=== PATIENT | male | born 1975 | race Caucasian/White ===

== ENCOUNTER → 2018-03-02 10:39 | Outpatient (CLI) | payer BC, SELFPAY ==
[2018-03-02 12:23] LABS: Add Manual Diff / Slide Review NO; Basophils Percent Auto 0.5 % (0-2); Eosinophils Percent Auto 3.1 % (2-4); Hematocrit 46.2 % (41-53); Hemoglobin 15.8 g/dL (13.5-17.5); Lymphocytes Percent Auto 31.3 % (25-40); Mean Corpuscular HGB Conc 34.2 % (30-36); Mean Corpuscular Hemoglobin 29.8 PG (26-34); Mean Corpuscular Volume 87.2 fL (80-100); Neutrophils Absolute Auto 3100 /uL (3000-5900); Neutrophils Percent Auto 58.1 % (50-75); Platelet Count 246 X10^3/uL (150-400); Red Cell Distribution Width 12.6 % (11.6-14.8); White Blood Cell Count 5.3 X10^3/uL (4.5-11.0)
[2018-03-02 13:13] LABS: Alanine Aminotransferase 50 IU/L (21-72); Albumin Globulin Ratio 1.8 (1.0-2.8); Alkaline Phosphatase 68 U/L (38-126); Aspartate Aminotransferase 25 IU/L (17-59); Bilirubin Total 0.6 mg/dL (0.2-1.3); Blood Urea Nitrogen 18 mg/dL (9-20); Calcium 9.7 mg/dL (8.4-10.2); Carbon Dioxide 28 mmol/L (22-32); Chloride 101 mmol/L (98-107); Cholesterol 205 mg/dL (140-199); Estimated Glomerular Filt Rate > 60.0 mL/min (>60); Globulin 2.8 g/dL (1.7-4.1); Glucose 82 mg/dL (70-100); HDL Cholesterol 57 mg/dL (40-60); HEMOLYSIS < 15 (0-50); LDL Cholesterol Calculated 134 mg/dL (<100); Potassium 4.7 mmol/L (3.4-5.1); Sodium 144 mmol/L (137-145); Total Protein 7.8 g/dL (6.3-8.2); Triglycerides 68 mg/dL (35-150)
[2018-03-02 13:17] LABS: Thyroid Stimulating Hormone 2.88 uIU/mL (0.47-4.68)
== END ==
PROVIDERS: PCP Family Medicine; Visit Provider Family Medicine
DX: Z00.00 Encounter for general adult medical examination without abnormal findings (principal)
CPT/HCPCS: 36415; 80053; 80061; 84443; 85025

== ENCOUNTER 2022-11-16 08:35 | Emergency (ER) | payer OTHER, SELFPAY ==
[2022-11-16] VITALS (27 sets, daily range): BP systolic 94–128; BP diastolic 54–83; PULSE 53–80; RESP 11–28; TEMP 37.1; O2SAT 96–100; BMI 26.4
--- NOTE | 2022-11-16 | DI.RAD.S_ITS ---
PROCEDURE: XR SHOULDER RT MIN 2V INDICATIONS: FELL OFF LADDER TECHNIQUE: 2 views of the shoulder were acquired. COMPARISON: None. FINDINGS: Bones: Mildly comminuted fracture of the humeral head and neck. No suspicious bony lesions. Visualized ribs appear intact. Soft tissues: No suspicious soft tissue calcifications. IMPRESSION: Mildly comminuted fracture of the humeral head and neck. Dictated by: Young Schwab M.D. on 11/16/2022 at 10:04 Approved by: Young Schwab M.D. on 11/16/2022 at 10:05
--- NOTE | 2022-11-16 08:39 | DI.CT.S_ITS ---
PROCEDURE: CT CHEST ABD PEL W CON INDICATIONS: Trauma TECHNIQUE: After the administration of intravenous contrast, 5 mm thick sections acquired from the lung apices to the symphysis. 2.5 mm thick coronal and sagittal reformats were acquired. Additional 7 mm thick coronal maximum intensity projection (MIP) reformats acquired through the lungs. Optional 10-minute delayed imaging may be performed from the kidneys to the bladder. For radiation dose reduction, the following was used: automated exposure control, adjustment of mA and/or kV according to patient size. COMPARISON: None. FINDINGS: Image quality: Excellent. CHEST: Lungs: No pulmonary contusions or lacerations. No acute airspace opacities. No pneumothorax or hemothorax. Central and peripheral airways appear patent and normal in caliber. Mediastinum: No mediastinal hematomas. Heart size is normal. No pericardial effusion. Thoracic aorta and pulmonary arteries demonstrate normal size and enhancement. No mediastinal or hilar adenopathy. Esophagus is normal in caliber. No hiatal hernia. Chest wall: No rib fractures. No subcutaneous emphysema. No axillary or supraclavicular adenopathy. Thyroid gland is unremarkable. ABDOMEN: Solid organs: Liver is normal in size and enhancement, without lacerations. Gallbladder is unremarkable without calcified gallstones. Biliary system is non-dilated. Pancreas enhances normally, without transection. Spleen is normal in size and enhancement, without lacerations. No adrenal hematomas. Both kidneys enhance normally, without hydronephrosis or lacerations. Peritoneum and bowel: No free fluid or air. Unenhanced bowel loops demonstrate normal wall thickness and caliber. Nodes and vessels: No retroperitoneal or mesenteric adenopathy. Aorta and inferior vena cava are normal in size and enhancement. Miscellaneous: No ventral hernias. PELVIS: Genitourinary: Bladder wall thickness is normal. Miscellaneous: No inguinal hernias or adenopathy. Bones: Pelvic ring and hip joints appear intact. No vertebral compression fractures. There is a mildly comminuted fracture of the right humeral head and neck. No dislocation. IMPRESSION: 1. Mildly comminuted fracture of the right humeral head and neck. 2. No rib fractures, vertebral body fractures, or other fractures other than the right humeral head and neck fracture. 3. No significant sequelae of acute trauma in the chest, abdomen, and pelvis. Dictated by: Young Schwab M.D. on 11/16/2022 at 9:41 Approved by: Young Schwab M.D. on 11/16/2022 at 9:46
--- NOTE | 2022-11-16 08:39 | DI.CT.S_ITS ---
PROCEDURE: CT CERVICAL SPINE WO CON INDICATIONS: Trauma TECHNIQUE: Noncontrast 3 mm thick sections acquired from the skull base to the T4 level. Sagittal and coronal reformats were then constructed. For radiation dose reduction, the following was used: automated exposure control, adjustment of mA and/or kV according to patient size. COMPARISON: None. FINDINGS: Image quality: Excellent. Bones: No fractures or dislocations. Visualized superior ribs are intact. Soft tissues: Prevertebral soft tissues are normal in thickness. No paravertebral hematomas. No apical pneumothoraces. IMPRESSION: No acute cervical fracture or dislocation. Dictated by: Young Schwab M.D. on 11/16/2022 at 9:39 Approved by: Young Schwab M.D. on 11/16/2022 at 9:41
--- NOTE | 2022-11-16 08:39 | DI.RAD.S_ITS ---
PROCEDURE: XR CHEST 1V INDICATIONS: trauma TECHNIQUE: One view of the chest was acquired. COMPARISON: None. FINDINGS: Surgical changes and devices: None. Lungs and pleura: Lungs are clear. No pleural effusions or pneumothorax. Mediastinum: Mediastinal contours appear normal. Heart size is normal. Bones and chest wall: No suspicious bony lesions. Overlying soft tissues appear unremarkable. IMPRESSION: No evidence acute pulmonary process. Dictated by: Young Schwab M.D. on 11/16/2022 at 9:07 Approved by: Young Schwab M.D. on 11/16/2022 at 9:10
--- NOTE | 2022-11-16 08:39 | DI.CT.S_ITS ---
PROCEDURE: CT HEAD/BRAIN WO CON INDICATIONS: Trauma TECHNIQUE: Noncontrast 4.5 mm thick angled axial sections acquired from the foramen magnum to the vertex, with coronal and sagittal reformats. For radiation dose reduction, the following was used: automated exposure control, adjustment of mA and/or kV according to patient size. COMPARISON: None. FINDINGS: Image quality: Excellent. CSF spaces: Basal cisterns are patent. No extra-axial fluid collections. Ventricles are normal in size and shape. Brain: No midline shift. No intracranial masses or hemorrhage. Hernandez-white matter interface is normal. Skull and face: Calvarium and visualized facial bones are intact, without suspicious lesions. Sinuses: Visualized sinuses and mastoids are clear. IMPRESSION: No acute intracranial process. Dictated by: Young Schwab M.D. on 11/16/2022 at 9:18 Approved by: Young Schwab M.D. on 11/16/2022 at 9:19
--- NOTE | 2022-11-16 08:48 | ED.GENADULT ---
HPI - General Adult General Chief complaint: Trauma Stated complaint: Trauma, Fall From Ladder, +LOC Time Seen by Provider: 11/16/22 08:38 History of Present Illness HPI narrative: 47-year-old male nonsmoker with no known chronic medical history presents by EMS for evaluation of traumatic injuries as a consequence of a fall from height. It is reported that he was on a roof attempting to repair some cables. He has no recall of the event but states he thinks he remembers at least getting to the ladder, his heard a sound and found him at the base of the ladder laying on the ground. He had a loss of consciousness of unknown duration. He is awake, alert and oriented, complaining of right shoulder and head pain. He denies any chest pain or shortness of breath. Denies nausea, vomiting or abdominal pain. Other than right shoulder he denies extremity pain or injury. In the field EMS employed full spinal precautions, he was given fentanyl for pain and had pressures in the 70s. Patient is activated as a full trauma Related Data Home Medications Medication Instructions Recorded Confirmed ibuprofen 200 mg capsule 200 mg PO PRN PRN ##0 07/16/16 03/04/20 Previous Rx's Medication Instructions Recorded hydrocortisone acetate 25 mg 25 mg [place] BID PRN hemorrhoids #12 ea 03/04/20 rectal suppository (Anusol-HC) hydrocodone 5 mg-acetaminophen 325 1 tab PO Q4-6H PRN pain #20 tabs 11/16/22 mg tablet ondansetron 4 mg disintegrating 4 mg PO TID-QID PRN nausea and 11/16/22 tablet vomiting #10 tabs Allergies Allergy/AdvReac Type Severity Reaction Status Date / Time Penicillins [PENICILLINS] Allergy Unknown Unverified 07/05/17 12:18 Review of Systems Review of Systems Narrative: GENERAL: Denies chills, fatigue, malaise, fever, sweats. HEENT: Denies sinus pain, ear pain, sore throat, difficulty swallowing, dizziness. RESPIRATORY: Denies dyspnea, cough, wheezing, hemoptysis, sputum. CARDIOVASCULAR: Denies chest pain, palpitations, orthopnea, edema, GASTROINTESTINAL: Denies nausea, vomiting, abdominal pain, diarrhea, constipation, melena. : Denies dysuria, frequency, incontinence, hematuria, urinary retention. MUSCULOSKELETAL: See HPI SKIN: Denies rash, skin lesions, or other NEUROLOGIC: See HPI PSYCHIATRIC: No concerning psychosocial issues. 12 point review of systems is negative except for those stated above Patient History Medical History Bright red blood per rectum Preventative health care Surgical History History of vasectomy Social History Smoking Status: Never smoker Smoking Status: Never smoker Exam Narrative Exam Narrative: GENERAL: [47] year old patient appears stated age. Well-developed patient, in mild distress. GCS 15 HEAD: Atraumatic. Normocephalic. EYES: Pupils equal round and reactive. No hyphema Extraocular motions intact. No scleral icterus. No injection or drainage. ENT: Nose without bleeding, purulent drainage. No nasal septal hematoma Throat without erythema, tonsillar hypertrophy or exudate. Airway patent. NECK: Trachea midline. Non tender, no step-offs or crepitance, C-collar in place CARDIOVASCULAR: Regular rate and rhythm without murmurs, gallops, or rubs. RESPIRATORY: Clear to auscultation. Breath sounds equal bilaterally. No wheezes, rales, or rhonchi. GASTROINTESTINAL: Abdomen soft, non-tender, nondistended. EXTREMITIES: Right upper extremity with pain, limited range of motion secondary to pain at shoulder, closed, no numbness or tingling. BACK: Nontender without deformity or crepitance. No flank tenderness. NEURO: AOx3. SKIN: No rash or erythema of visible areas Initial Vital Signs Initial Vital Signs: Vital Signs Temperature 98.7 F 11/16/22 09:01 Pulse Rate 74 11/16/22 09:01 Respiratory Rate 16 11/16/22 09:01 Blood Pressure 108/65 11/16/22 09:01 Pulse Oximetry 99 11/16/22 09:01 Oxygen Delivery Method Room Air 11/16/22 09:01 Course Orders Ordered: Discontinued Medications Diphtheria/Tetanus/Acell Pertussis (Tet,Diph,Pertuss(Acell),Vac/Pf 0.5 Ml Syringe) 0.5 ml IM .ONCE ONE Stop: 11/16/22 08:40 Last Admin: 11/16/22 09:24 Dose: 0.5 ml Documented By: CHANDA Fentanyl (Fentanyl 100 Mcg/2 Ml Inj) 100 mcg IV NOW ONE Stop: 11/16/22 08:58 Last Admin: 11/16/22 09:05 Dose: 100 mcg Documented By: JEREMÍAS Hydromorphone HCl (Hydromorphone 1 Mg Inj) 1 mg IV NOW ONE Stop: 11/16/22 09:29 Last Admin: 11/16/22 09:32 Dose: 1 mg Documented By: CHANDA Vital Signs Vital signs: Vital Signs - 8 hr 11/16/22 09:01 11/16/22 09:08 11/16/22 09:17 Temperature 98.7 F Pulse Rate 74 80 70 Respiratory Rate 16 28 H 17 Blood Pressure 108/65 126/72 Pulse Oximetry 99 100 100 Oxygen Delivery Method Room Air Room Air 11/16/22 09:18 11/16/22 09:18 11/16/22 09:20 Temperature Pulse Rate 57 L Respiratory Rate 16 Blood Pressure 118/69 128/68 Pulse Oximetry 100 Oxygen Delivery Method 11/16/22 09:20 Temperature Pulse Rate 59 L Respiratory Rate 18 Blood Pressure Pulse Oximetry 99 Oxygen Delivery Method Medical Decision Making Lab Data 11/16/22 08:30 11/16/22 08:30 Labs: Lab Results 11/16/22 11/16/22 11/16/22 Range/Units 08:30 08:30 08:30 WBC 7.8 (4.5-11.0) X10^3/uL RBC 4.98 (4.5-5.9) X10^6/uL Hgb 15.0 (13.5-17.5) g/dL Hct 43.5 (41-53) % MCV 87.3 (80-100) fL MCH 30.1 (26-34) PG MCHC 34.5 (30-36) % RDW 13.5 (11.6-14.8) % Plt Count 286 (150-400) X10^3/uL Neut % (Auto) 42.5 L (50-75) % Lymph % (Auto) 44.3 H (25-40) % [place] % (Auto) 9.4 (3-14) % Eos % (Auto) 3.5 (2-4) % Baso % (Auto) 0.3 (0-2) % Neut # (Auto) 3300 (3644-6864) /uL Lymph # (Auto) 3400 (9565-0875) /uL [place] # (Auto) 700 (0-900) /uL Eos # (Auto) 300 (0-450) /uL Baso # (Auto) 0 (0-100) /uL PT 15.5 H (10.1-12.7) SECONDS INR 1.3 (0.9-1.3) APTT 32 (26-36) SECONDS Sodium 139 (137-145) mmol/L Potassium 3.3 L (3.4-5.1) mmol/L Chloride 106 (98-107) mmol/L Carbon Dioxide 25 (22-32) mmol/L BUN 19 (9-20) mg/dL Creatinine 1.09 (0.66-1.25) mg/dL Estimated GFR > 60 (>60) mL/min BUN/Creatinine Ratio 17.4 (6-22) Glucose 127 H (70-100) mg/dL Lactate (0.7-2.1) mmol/L Calcium 9.1 (8.4-10.2) mg/dL Total Bilirubin 0.8 (0.2-1.3) mg/dL AST 33 (17-59) IU/L ALT 32 (<50) IU/L Alkaline Phosphatase 76 (38-126) U/L Total Creatine Kinase 120 (55-170) U/L Troponin I < 0.012 (0.01-0.034) ng/mL Total Protein 7.5 (6.3-8.2) g/dL Albumin 4.4 (3.5-5.0) g/dL Globulin 3.1 (1.7-4.1) g/dL Albumin/Globulin Ratio 1.4 (1.0-2.8) Lipase 119 (23-300) U/L Ethyl Alcohol < 10 ( - 10) mg/dL Blood Type Antibody Screen Crossmatch 11/16/22 11/16/22 Range/Units 08:30 09:03 WBC (4.5-11.0) X10^3/uL RBC (4.5-5.9) X10^6/uL Hgb (13.5-17.5) g/dL Hct (41-53) % MCV (80-100) fL MCH (26-34) PG MCHC (30-36) % RDW (11.6-14.8) % Plt Count (150-400) X10^3/uL Neut % (Auto) (50-75) % Lymph % (Auto) (25-40) % [place] % (Auto) (3-14) % Eos % (Auto) (2-4) % Baso % (Auto) (0-2) % Neut # (Auto) (4310-2959) /uL Lymph # (Auto) (7814-9394) /uL [place] # (Auto) (0-900) /uL Eos # (Auto) (0-450) /uL Baso # (Auto) (0-100) /uL PT (10.1-12.7) SECONDS INR (0.9-1.3) APTT (26-36) SECONDS Sodium (137-145) mmol/L Potassium (3.4-5.1) mmol/L Chloride (98-107) mmol/L Carbon Dioxide (22-32) mmol/L BUN (9-20) mg/dL Creatinine (0.66-1.25) mg/dL Estimated GFR (>60) mL/min BUN/Creatinine Ratio (6-22) Glucose (70-100) mg/dL Lactate 1.9 (0.7-2.1) mmol/L Calcium (8.4-10.2) mg/dL Total Bilirubin (0.2-1.3) mg/dL AST (17-59) IU/L ALT (<50) IU/L Alkaline Phosphatase (38-126) U/L Total Creatine Kinase (55-170) U/L Troponin I (0.01-0.034) ng/mL Total Protein (6.3-8.2) g/dL Albumin (3.5-5.0) g/dL Globulin (1.7-4.1) g/dL Albumin/Globulin Ratio (1.0-2.8) Lipase (23-300) U/L Ethyl Alcohol ( - 10) mg/dL Blood Type O Positive Antibody Screen Negative Crossmatch See Detail Point of Care Testing Glucose POC 126 Point of care testing: Point of Care Testing Glucose POC 126 MDM Narrative Medical decision making narrative: CC: 47-year-old male trauma fall from height with head and shoulder injury Complicating co-morbidities: None known Data collected from: Patient Medical records reviewed: Prior notes reviewed in our EMR Differential considered, but not limited to: Intracranial hemorrhage versus skull fracture versus cervical fracture versus shoulder fracture versus pneumothorax versus other Exam documented above, pertinent findings include: A&O x3, GCS 15, dried blood on scalp, pain on palpation of right shoulder. Heart rate regular, lungs clear, abdomen soft Lab Test results independently reviewed as above. Pertinent findings: No signs of leukocytosis, anemia, electrolyte abnormality or kidney failure. Independently reviewed EKG as above Imaging studies independently reviewed: Head CT without intracranial hemorrhage or fracture, C-spine CT demonstrates no cervical fracture or dislocation, CT of chest abdomen and pelvis demonstrates no rib fractures, vertebral fractures or other significant findings other than a mildly comminuted fracture of the right humeral head and neck. Scores Used: GCS 15 Discharge Plan Departure Patient Disposition: Home Clinical Impression: Laceration of scalp, Fracture of proximal end of humerus Instructions: DI for Trauma Activity Restrictions/Additional Instructions: *You have been diagnosed with [fall with scalp laceration and proximal humerus fracture] *What to do: *Please continue to take your regular medications as directed. [x ] New medication prescriptions sent to your pharmacy: [[facility] ] [ ] New medication written as a paper prescription [x] Tylenol and occasional Motrin for pain *Please follow up with [ Jacinta] of [facility] in 2-3 days, call for an appointment. Let them know you were seen in the Emergency Department and that we ask that you be seen in follow up. We will electronically transmit a record of today's note if your PCP is in our system Please keep the wound clean and dry to the best of your ability. Please monitor for signs of infection such as redness to the skin or increasing pain. Have the sutures/damaso removed by your doctor in about 7 days. If you are unable to get into your doctor, we would be happy to remove the sutures/damaso in that same timeframe. *Return to Emergency Department if you should have any new, worsening or concerning symptoms, such as [worsening pain, significant swelling, cold extremities, numbness, tingling, weakness or other bothersome symptoms You have been prescribed a short course of narcotic medications. These are potentially dangerous and addictive medications that should be used carefully. While on these medications you cannot drive or operate heavy machinery. Additionally, you cannot sign legal documents or perform any duties such as this. Many people get constipated on narcotic medications so it would be advisable to discuss stool softeners with the pharmacist when you picker tender your prescription. Please understand that we cannot provide further refills of narcotics or controlled substances through the ED and your pain management will need to be through your Primary Care Provider Prescriptions: New hydrocodone-acetaminophen 5-325 mg tablet 1 tab PO Q4-6H PRN (Reason: pain) Qty: 20 0RF ondansetron 4 mg tablet,disintegrating 4 mg PO TID-QID PRN (Reason: nausea and vomiting) Qty: 10 0RF No Action ibuprofen 200 MG capsule 200 mg PO PRN PRNQty: 0 hydrocortisone acetate [Anusol-HC] 25 mg suppository 25 mg [place] BID PRN (Reason: hemorrhoids) Qty: 12 1RF Referrals: Noemí Workman MD [Physician] - Garry Castaneda DO [Primary Care Provider] - Stand Alone Forms: Patient Portal/API
[2022-11-16 08:59] LABS: Add Manual Diff / Slide Review NO; Basophils Absolute Auto 0 /uL (0-100); Basophils Percent Auto 0.3 % (0-2); Eosinophils Absolute Auto 300 /uL (0-450); Eosinophils Percent Auto 3.5 % (2-4); Hematocrit 43.5 % (41-53); Lymphocytes Absolute Auto 3400 /uL (1100-4500); Lymphocytes Percent Auto 44.3 % (25-40); Mean Corpuscular HGB Conc 34.5 % (30-36); Mean Corpuscular Hemoglobin 30.1 PG (26-34); Mean Corpuscular Volume 87.3 fL (80-100); Monocytes Absolute Auto 700 /uL (0-900); Monocytes Percent Auto 9.4 % (3-14); Neutrophils Absolute Auto 3300 /uL (1500-7000); Neutrophils Percent Auto 42.5 % (50-75); Platelet Count 286 X10^3/uL (150-400); Red Blood Cell Count 4.98 X10^6/uL (4.5-5.9); Red Cell Distribution Width 13.5 % (11.6-14.8); White Blood Cell Count 7.8 X10^3/uL (4.5-11.0)
[2022-11-16 09:05] LABS: INR 1.3 (0.9-1.3); Prothrombin Time 15.5 SECONDS (10.1-12.7)
[2022-11-16] MEDS: fentaNYL 100 MCG/2 ML INJ IV (09:05)
[2022-11-16 09:08] LABS: PTT Partial Thromboplastin Tim 32 SECONDS (26-36)
[2022-11-16 09:09] LABS: Lactate (Lactic Acid) 1.9 mmol/L (0.7-2.1)
[2022-11-16 09:11] LABS: Alanine Aminotransferase 32 IU/L (<50); Albumin 4.4 g/dL (3.5-5.0); Albumin Globulin Ratio 1.4 (1.0-2.8); Alkaline Phosphatase 76 U/L (38-126); Aspartate Aminotransferase 33 IU/L (17-59); BUN Creatinine Ratio 17.4 (6-22); Bilirubin Total 0.8 mg/dL (0.2-1.3); Blood Urea Nitrogen 19 mg/dL (9-20); Calcium 9.1 mg/dL (8.4-10.2); Carbon Dioxide 25 mmol/L (22-32); Chloride 106 mmol/L (98-107); Creatine Kinase 120 U/L (55-170); Estimated Glomerular Filt Rate > 60 mL/min (>60); Ethanol (ETOH) < 10 mg/dL; Globulin 3.1 g/dL (1.7-4.1); Glucose 127 mg/dL (70-100); HEMOLYSIS < 15 (0-50); Lipase 119 U/L (23-300); Potassium 3.3 mmol/L (3.4-5.1); Sodium 139 mmol/L (137-145); Total Protein 7.5 g/dL (6.3-8.2)
[2022-11-16 09:21] LABS: Troponin I < 0.012 ng/mL (0.01-0.034)
[2022-11-16] MEDS: TET,DIPH,PERTUSS(ACELL),VAC/PF 0.5 ML SYRINGE IM (09:24)
[2022-11-16] MEDS: HYDROMORPHONE 1 MG INJ IV (09:32)
--- NOTE | 2022-11-16 09:53 | PC.NURSE ---
Patient C-Spine cleared. C Collar removed.
--- NOTE | 2022-11-16 10:59 | PC.NURSE ---
patient ambulatory with no difficulty. Tolerated well
== END 2022-11-16 11:13 | disposition home or self-care (01) ==
PROVIDERS: Emergency Provider Emergency Medicine; PCP Family Medicine
DX: S01.01XA Laceration without foreign body of scalp, initial encounter (principal); S42.201A Unspecified fracture of upper end of right humerus, initial encounter for closed fracture; W11.XXXA Fall on and from ladder, initial encounter; Z23 Encounter for immunization
CPT/HCPCS: 36415; 70450; 71045; 71260; 72125; 73030; 74177; 80053; 80320; 82550; 82962; 83605; 83690; 84484; 85025; 85610; 85730; 86850; 86900; 86901; 90471; 93005; 96374; 96375; 99285; 90715; J1170; J3010; Q9967

== ENCOUNTER → 2023-07-28 08:47 | Outpatient (CLI) | payer OTHER, SELFPAY ==
[2023-07-28 11:10] LABS: Glucose 93 mg/dL (70-100)
== END ==
PROVIDERS: PCP Family Medicine; Referring Provider Family Medicine; Visit Provider Family Medicine
DX: Z00.00 Encounter for general adult medical examination without abnormal findings (principal)
CPT/HCPCS: 36415; 82947